=== PATIENT | female | born 1945 | race Caucasian/White ===

== ENCOUNTER 2017-11-07 05:55 | Day surgery (SDC) | payer MEDICARE, OTHER ==
[2017-11-06 10:57] LABS: BASOPHILS # (AUTO) 0.1 X10'3 (0-0.2); BASOPHILS % (AUTO) 1.1 % (0-1); EOSINOPHILS # (AUTO) 0.2 X10'3 (0-0.9); EOSINOPHILS % (AUTO) 2.9 % (0-6); HEMATOCRIT 42.2 % (35.0-45.0); HEMOGLOBIN 14.6 g/dl (12.0-16.0); LYMPHOCYTES # (AUTO) 1.1 X10'3 (1.1-4.8); LYMPHOCYTES % (AUTO) 17.5 % (21-51); MEAN CORPUSCULAR HEMOGLOBIN 36.4 PG (27.0-31.0); MEAN CORPUSCULAR HGB CONC 34.6 % (33.0-36.5); MEAN CORPUSCULAR VOLUME 105.3 FL (78-98); MEAN PLATELET VOLUME 9.4 FL (7.4-10.4); MONOCYTES # (AUTO) 0.5 X10'3 (0-0.9); MONOCYTES % (AUTO) 7.5 % (2-12); NEUTROPHILS # (AUTO) 4.3 X10'3 (1.8-7.7); PLATELET COUNT 154 X10'3 (140-440); RED CELL DISTRIBUTION WIDTH 12.7 % (11.5-14.5); WHITE BLOOD COUNT 6.1 X10'3 (4.5-11.0)
[2017-11-06 11:06] LABS: ALBUMIN 3.8 G/DL (3.4-5.0); ANION GAP 6 (8-16); BLOOD UREA NITROGEN 28 MG/DL (7-18); BUN/CREATININE RATIO 26.2 (6.6-38.0); CALCIUM 8.8 MG/DL (8.5-10.1); CHLORIDE 104 MMOL/L (99-107); CREATININE 1.07 MG/DL (0.40-0.90); GLUCOSE 81 MG/DL (70-104); SODIUM 140 MMOL/L (135-145); TOTAL CARBON DIOXIDE 30.4 MMOL/L (24-32); eGFR 50 ML/MIN
[2017-11-06 11:07] LABS: PARTIAL THROMBOPLASTIN TIME 24 SECONDS (22-32); PROTHROMBIN TIME 10.7 SECONDS (9.0-12.0)
[2017-11-07] VITALS (7 sets, daily range): BP systolic 114–131; BP diastolic 55–71
[~2017-11-07] VITALS: Ht 167.6 cm; Wt 59.4 kg
[~2017-11-07 05:55] MED LIST: CALC-1197 PO; CHOL2000 PO; ESTR0.3T10 PO; FLEC100T2 PO; LOP25T PO; OMEG1CAP PO; PROG100C6 PO; REM15T PO; RIVA20TA PO; TRAV5DRO5 OP; VITA1CAP62 PO; VITA400T8 PO; ZOLP5TAB8 PO
[2017-11-07] MEDS ORDERED: acetylcysteine 200 MG/ml 4ml vial PO PRN (06:15)
[2017-11-07] MEDS ORDERED: diphenhydrAMINE 25mg capsule PO PRN (06:15)
[2017-11-07] MEDS ORDERED: LORazepam 0.5 MG tablet PO PRN (06:15)
[2017-11-07] MEDS ORDERED: normal saline 1000ml 1,000 ML IV SCH (06:15)
[2017-11-07] MEDS ORDERED: ASPI-1264 PO (06:57)
[2017-11-07] MEDS ORDERED: THY60T PO (06:57)
[2017-11-07] MEDS ORDERED: LOSA1TAB39 PO (06:57)
[2017-11-07] MEDS ORDERED: QUET25TA PO (06:57)
[2017-11-07] MEDS ORDERED: midazolam 2 mg/2 ml injection ONE (07:58)
[2017-11-07] MEDS ORDERED: heparin 1,000unit/ml 10ml vial 10 ML ONE (07:58)
[2017-11-07] MEDS ORDERED: fentaNYL/PF 50MCG/1 ML 2ML syringe ONE (07:58)
[2017-11-07] MEDS ORDERED: nitroGLYCERIN-Tridil 50MG/D5W 250 ML IV ONE (07:58)
[2017-11-07] MEDS ORDERED: iohexol 350 MG/ML 50ML vial IV ONE (07:59)
[2017-11-07] MEDS ORDERED: iohexol 350MG/ML 100ml bottle IV ONE (07:59)
[2017-11-07] MEDS ORDERED: LIDOcaine 1% w/EPI 1:100,000 30ml vial (MDV) ONE (08:00)
== END 2017-11-07 15:10 | disposition home or self-care (01) ==
LOC: SSTAY O 05:55
PROVIDERS: ATTEND Internal Medicine Cardiovascular Disease
DX: I25.10 Atherosclerotic heart disease of native coronary artery without angina pectoris (principal); I34.0 Nonrheumatic mitral (valve) insufficiency; I10 Essential (primary) hypertension; I48.0 Paroxysmal atrial fibrillation; M19.90 Unspecified osteoarthritis, unspecified site; E03.9 Hypothyroidism, unspecified; Z79.82 Long term (current) use of aspirin; Z90.89 Acquired absence of other organs; Z88.5 Allergy status to narcotic agent; Z87.891 Personal history of nicotine dependence; Z95.2 Presence of prosthetic heart valve; Z72.89 Other problems related to lifestyle; Z88.8 Allergy status to other drugs, medicaments and biological substances; Z98.890 Other specified postprocedural states; Z79.899 Other long term (current) drug therapy
CPT/HCPCS: 36415; 80048; 85025; 85610; 85730; 93005; 93458; 99152; 99153; A6257; C1760; C1769; J1644; J2250; J3010; J3490; J7030; Q0163; Q9967; A4620

== ENCOUNTER 2022-06-17 08:49 | Outpatient (CLI) | payer MEDICARE ==
[~2022-06-17 08:49] MED LIST changes: +ASPI-1264 PO; -CALC-1197 PO; +CALC-1215 PO; -FLEC100T2 PO; +LOSA1TAB39 PO; +PROG100C11 PO; -PROG100C6 PO; +QUET25TA PO; -REM15T PO; -RIVA20TA PO; +THY60T PO; -ZOLP5TAB8 PO
== END 2022-06-17 23:59 | disposition home or self-care (01) ==
LOC: RAD 08:49
PROVIDERS: ATTEND Internal Medicine Cardiovascular Disease
DX: I34.0 Nonrheumatic mitral (valve) insufficiency (principal); Z95.2 Presence of prosthetic heart valve
CPT/HCPCS: 93306

== ENCOUNTER 2023-11-09 09:39 | Outpatient (CLI) | payer MEDICARE ==
[~2023-11-09] VITALS: Ht 170.2 cm; Wt 59.0 kg
[2023-11-09 11:33] LABS: BILIRUBIN,URINE NEGATIVE (Neg); CLARITY,URINE CLOUDY (Clear); COLOR,URINE YELLOW (Yellow); GLUCOSE, URINE NEGATIVE (Neg); KETONES,URINE NEGATIVE (Neg); LEUKOCYTE ESTERASE ,URINE MODERATE (Neg); NITRITES, URINE POSITIVE (Neg); OCCULT BLOOD,URINE TRACE-INTACT (Neg); PROTEIN,URINE NEGATIVE (Neg); UROBILINOGEN,URINE 0.2 E.U/dL (0.2-1.0)
[2023-11-09 11:34] LABS: UA COLLECTION TYPE CLN CATCH MIDSTREAM
[2023-11-09 11:39] LABS: BASOPHILS # (AUTO) 0.1 X10'3 (0-0.2); BASOPHILS % (AUTO) 0.7 % (0-1); EOSINOPHILS # (AUTO) 0.2 X10'3 (0-0.9); EOSINOPHILS % (AUTO) 2.6 % (0-6); LYMPHOCYTES % (AUTO) 13.1 % (21-51); MEAN CORPUSCULAR HEMOGLOBIN 35.3 PG (27.0-31.0); MEAN CORPUSCULAR HGB CONC 34.3 g/dL (33.0-36.5); MEAN CORPUSCULAR VOLUME 102.9 FL (78-98); MONOCYTES # (AUTO) 0.7 X10'3 (0-0.9); MONOCYTES % (AUTO) 9.4 % (2-12); NEUTROPHILS # (AUTO) 5.7 X10'3 (1.8-7.7); NEUTROPHILS % (AUTO) 74.2 % (42-75); PRE OP HEMATOCRIT 41.4 % (35.0-45.0); PRE OP HEMOGLOBIN 14.2 g/dL (12.0-16.0); PRE OP PLATELET COUNT 174 X10'3 (140-440); PRE OP WHITE BLOOD COUNT 7.6 10'3 (4.8-10.8); RED BLOOD COUNT 4.02 X10'6 (4.20-5.60); RED CELL DISTRIBUTION WIDTH 13.2 % (11.5-14.5)
[2023-11-09 11:44] LABS: PRE OP PROTIME 11.1 SECONDS (9.0-12.0)
[2023-11-09 11:46] LABS: SQUAMOUS EPITHELIAL CELL,UR MANY /LPF (FEW)
[2023-11-09 11:47] LABS: BACTERIA,URINE 4+ /HPF (Neg); RBC,URINE 0-2 /HPF (0-2)
[2023-11-09 12:00] LABS: ALBUMIN 3.5 G/DL (3.4-5.0); ALBUMIN/GLOBULIN RATIO 1.1 (1.1-1.5); ALKALINE PHOSPHATASE 65 IU/L (46-116); BLOOD UREA NITROGEN 21 MG/DL (7-18); BUN/CREATININE RATIO 21.6 (10.0-20.0); CALCIUM 9.1 MG/DL (8.5-10.1); CHLORIDE 105 MMOL/L (99-107); CREATININE 0.97 MG/DL (0.40-0.90); PRE OP ALT 31 U/L (30-65); PRE OP ANION GAP 6 (8-16); PRE OP AST 32 U/L (10-37); PRE OP GLUCOSE 88 MG/DL (70-104); PRE OP POTASSIUM 4.3 MMOL/L (3.4-5.1); PRE OP SODIUM 139 MMOL/L (135-145); THYROID STIMULATING HORMONE 2.22 ulU/ml (0.34-4.50); TOTAL CARBON DIOXIDE 28.2 MMOL/L (24-32); TOTAL PROTEIN 6.6 G/DL (6.4-8.2); eGFR 55 ML/MIN
[2023-11-09] MEDS ORDERED: CELE-127 PO (13:34)
[2023-11-09] MEDS ORDERED: DULO60CA65 PO (13:34)
[2023-11-09] MEDS ORDERED: FLAX OIL (13:34)
[2023-11-09] MEDS ORDERED: LEVO50TA8 PO (13:34)
[2023-11-09] MEDS ORDERED: VIT D3 (13:34)
[2023-11-09] MEDS ORDERED: LOPERAMIDE (13:35)
[2023-11-14] MEDS ORDERED: cefazolin 2gm/D5W 100mL 100 ML IV ONE (05:30)
[2023-11-14] MEDS ORDERED: tranexamic acid inj. 1,000 MG in normal saline IV soln 100ML IV ONE (05:30)
[2023-11-14] MEDS ORDERED: ringers solution, lacted 1,000 ML IV SCH (05:30)
[2023-11-14] MEDS ORDERED: famotidine 20mg tablet PO ONE (05:30)
[2023-11-14] MEDS ORDERED: DOCUMENT DATE & TIME OF BETA-BLOCKER PO ONE (05:30)
== END 2023-11-09 23:59 | disposition home or self-care (01) ==
LOC: LAB 09:39 → EDSTATUS 11-14 10:00
PROVIDERS: ATTEND Specialist
DX: Z01.818 Encounter for other preprocedural examination (principal); M19.011 Primary osteoarthritis, right shoulder; I10 Essential (primary) hypertension; E03.9 Hypothyroidism, unspecified; F41.9 Anxiety disorder, unspecified; F32.A Depression, unspecified; M19.90 Unspecified osteoarthritis, unspecified site; Z85.038 Personal history of other malignant neoplasm of large intestine; Z86.73 Personal history of transient ischemic attack (TIA), and cerebral infarction without residual deficits; Z87.891 Personal history of nicotine dependence; Z79.82 Long term (current) use of aspirin; Z79.890 Hormone replacement therapy; Z79.899 Other long term (current) drug therapy; Z90.49 Acquired absence of other specified parts of digestive tract; Z90.89 Acquired absence of other organs; Z96.641 Presence of right artificial hip joint; Z96.659 Presence of unspecified artificial knee joint; Z98.890 Other specified postprocedural states; Z88.5 Allergy status to narcotic agent; Z88.8 Allergy status to other drugs, medicaments and biological substances
CPT/HCPCS: 36415; 71046; 80053; 81001; 84443; 85025; 85610; 85730; 86885; 86900; 86901; 87077; 87081; 87088; 87186; J0690; J3490; J7120

== ENCOUNTER 2024-01-23 06:14 | Inpatient (IN) | payer MEDICARE ==
[2024-01-16 14:50] LABS: BILIRUBIN,URINE NEGATIVE (Neg); CLARITY,URINE CLEAR (Clear); COLOR,URINE YELLOW (Yellow); GLUCOSE, URINE NEGATIVE (Neg); KETONES,URINE NEGATIVE (Neg); LEUKOCYTE ESTERASE ,URINE TRACE (Neg); NITRITES, URINE NEGATIVE (Neg); OCCULT BLOOD,URINE NEGATIVE (Neg); PROTEIN,URINE NEGATIVE (Neg); UROBILINOGEN,URINE 0.2 E.U/dL (0.2-1.0)
[2024-01-16 14:50] LABS: BASOPHILS # (AUTO) 0.1 X10'3 (0-0.2); EOSINOPHILS # (AUTO) 0.2 X10'3 (0-0.9); MEAN CORPUSCULAR HGB CONC 33.8 g/dL (33.0-36.5); MONOCYTES # (AUTO) 0.7 X10'3 (0-0.9); NEUTROPHILS # (AUTO) 5.9 X10'3 (1.8-7.7); PRE OP HEMOGLOBIN 14.8 g/dL (12.0-16.0)
[2024-01-16 14:51] LABS: UA COLLECTION TYPE CLN CATCH MIDSTREAM
[2024-01-16 14:51] LABS: BASOPHILS % (AUTO) 0.9 % (0-1); EOSINOPHILS % (AUTO) 2.5 % (0-6); LYMPHOCYTES % (AUTO) 13.2 % (21-51); MEAN CORPUSCULAR HEMOGLOBIN 35.1 PG (27.0-31.0); MEAN CORPUSCULAR VOLUME 103.8 FL (78-98); MEAN PLATELET VOLUME 9.6 FL (7.4-10.4); MONOCYTES % (AUTO) 8.7 % (2-12); NEUTROPHILS % (AUTO) 74.7 % (42-75); PRE OP HEMATOCRIT 43.8 % (35.0-45.0); PRE OP PLATELET COUNT 184 X10'3 (140-440); PRE OP WHITE BLOOD COUNT 7.9 10'3 (4.8-10.8); RED BLOOD COUNT 4.22 X10'6 (4.20-5.60); RED CELL DISTRIBUTION WIDTH 13.7 % (11.5-14.5)
[2024-01-16 14:56] LABS: BACTERIA,URINE 1+ /HPF (Neg); RBC,URINE 0-2 /HPF (0-2); SQUAMOUS EPITHELIAL CELL,UR MODERATE /LPF (FEW)
[2024-01-16 14:57] LABS: MUCUS STRANDS NONE SEEN /LPF (Neg)
[2024-01-16 14:59] LABS: PRE OP INR 1.1 INR; PRE OP PROTIME 11.3 SECONDS (9.0-12.0)
[2024-01-16 15:00] LABS: ALBUMIN 3.6 G/DL (3.4-5.0); ALBUMIN/GLOBULIN RATIO 1.3 (1.1-1.5); ALKALINE PHOSPHATASE 65 IU/L (46-116); BLOOD UREA NITROGEN 20 MG/DL (7-18); CALCIUM 8.7 MG/DL (8.5-10.1); CHLORIDE 104 MMOL/L (99-107); CREATININE 1.33 MG/DL (0.40-0.90); PRE OP ALT 24 U/L (30-65); PRE OP ANION GAP 7 (8-16); PRE OP AST 29 U/L (10-37); PRE OP BILIRUB, TOTAL 0.6 MG/DL (0.0-1.0); PRE OP GLUCOSE 82 MG/DL (70-104); PRE OP POTASSIUM 4.5 MMOL/L (3.4-5.1); PRE OP SODIUM 139 MMOL/L (135-145); TOTAL CARBON DIOXIDE 27.7 MMOL/L (24-32); TOTAL PROTEIN 6.4 G/DL (6.4-8.2); eGFR 38 ML/MIN
[~2024-01-23] VITALS: Ht 170.2 cm; Wt 59.6 kg
[2024-01-23] VITALS (23 sets, daily range): BP systolic 118–163; BP diastolic 50–89; PULSE 56–70; RESP 12–22; TEMP 96.3–97.7; O2SAT 92–100
[2024-01-23] MEDS: DOCUMENT DATE & TIME OF BETA-BLOCKER PO ONE (05:30)
[2024-01-23] MEDS: cefazolin 2gm/D5W 100mL 100 ML IV ONE (05:30)
[2024-01-23] MEDS: tranexamic acid inj. 1,000 MG in normal saline IV soln 100ML IV ONE (05:30)
[~2024-01-23 06:14] MED LIST changes: -CALC-1215 PO; +CALCIUM PO; +CELE-127 PO; -CHOL2000 PO; +CHOL500044 PO; +DULO60CA65 PO; -ESTR0.3T10 PO; +FLAX OIL PO; +LEVO50TA8 PO; +LOPERAMIDE PO; -OMEG1CAP PO; +PREG25CA19 PO; -THY60T PO; -TRAV5DRO5 OP; -VITA1CAP62 PO; -VITA400T8 PO; +[UNRECOGNIZED DRUG - OTHER]
[2024-01-23] MEDS ORDERED: HYDROcodone/acetaminophen 5mg/325mg tablet PO PRN (07:05)
[2024-01-23] MEDS ORDERED: naloxone 0.4 mg/ml inj IV PRN (07:05)
[2024-01-23] MEDS ORDERED: bisacodyl 10mg suppository rectal RC PRN (07:05)
[2024-01-23] MEDS ORDERED: acetaminophen 325mg tablet PO PRN (07:05)
[2024-01-23] MEDS ORDERED: diphenhydrAMINE 25mg capsule PO PRN (07:05)
[2024-01-23] MEDS ORDERED: ondansetron/PF 4mg/2ml inj IV PRN ×2 (07:05→08:45)
[2024-01-23] MEDS ORDERED: magnesium hydroxide 30ml (MOM) UD suspension PO PRN (07:05)
[2024-01-23] MEDS: ringers solution, lacted 1,000 ML IV SCH ×2 (07:26→11:38)
[2024-01-23] MEDS: famotidine 20mg tablet PO ONE (07:27)
[2024-01-23] MEDS ORDERED: sevoflurane 250ml liquid IH ONE (07:35)
[2024-01-23] MEDS ORDERED: fentaNYL/PF 50MCG/1 ML 2ML syringe ONE (07:39)
[2024-01-23] MEDS ORDERED: midazolam 1 mg/ML 2ml injection ONE (07:40)
[2024-01-23] MEDS ORDERED: LIDOcaine 2% (20mg/ml) 5ml vial ONE (08:06)
[2024-01-23] MEDS ORDERED: dexamethasone sod phosphate 4mg/ml inj. ONE (08:06)
[2024-01-23] MEDS ORDERED: propofol inj 20 ML IV ONE (08:06)
[2024-01-23] MEDS ORDERED: ROPIVAcaine 0.5% (5mg/ml) 30ml vial ONE (08:06)
[2024-01-23] MEDS ORDERED: enalaprilat dihydrate 2.5mg/2ml vial IV PRN (08:45)
[2024-01-23] MEDS ORDERED: morphine 4 MG/ML inj SYRINge IV PRN (08:45)
[2024-01-23] MEDS ORDERED: labetalol 20mg/4ml (5mg/ml) syringe IV PRN (08:45)
[2024-01-23] MEDS ORDERED: meperidine/PF 25mg/ml syringe IV PRN ×3 (08:45)
[2024-01-23] MEDS ORDERED: proCHLORperazine 10 MG/2 ml inj IV PRN (08:45)
[2024-01-23] MEDS ORDERED: morphine 2 MG/ML inj. syringe IV PRN (08:45)
[2024-01-23] MEDS ORDERED: ondansetron/PF 4mg/2ml inj ONE (09:36)
[2024-01-23] MEDS ORDERED: glycopyrrolate 0.2mg/ml inj ONE (09:37)
[2024-01-23] MEDS ORDERED: neostigmine methylsulfate 1 MG/ML 10ml vial ONE (09:37)
[2024-01-23] MEDS ORDERED: QUEtiapine 25mg tablet PO PRN (13:30)
[2024-01-23] MEDS ORDERED: loperamide 2mg capsule PO PRN (13:30)
[2024-01-23] MEDS: ceFAZolin/D5W- 1GM premix 50 ML IV SCH (19:13)
[2024-01-23] MEDS ORDERED: FLAX OIL PO SCH (20:00)
[2024-01-23] MEDS: progesterone, micronized 100mg capsule PO SCH (21:41)
[2024-01-23] MEDS: pregabalin 25mg capsule PO SCH (21:41)
[2024-01-23] MEDS: metoprolol tartrate 25mg tablet PO SCH (21:42)
[2024-01-23] MEDS: cholecalciferol (vitamin D3) 1,000 unit (25mcg) tablet PO SCH (21:43)
[2024-01-23] MEDS: celeCOXIB 100mg capsule PO SCH (21:43)
[2024-01-23] MEDS: calcium carbonate 500mg tablet PO SCH (21:43)
[2024-01-23] MEDS: potassium cl 20mEq in 1/2 NS 1,000 ML IV SCH (22:03)
[2024-01-24 02:00] VITALS: BP 113/56; PULSE 70; RESP 13; TEMP 97.9; O2SAT 96
[2024-01-24] MEDS: HYDROcodone/acetaminophen 5mg/325mg tablet PO PRN (05:54)
[2024-01-24 05:56] LABS: BASOPHILS % (AUTO) 0.2 % (0-1); EOSINOPHILS % (AUTO) 0 % (0-6); HEMATOCRIT 37.8 % (35.0-45.0); LYMPHOCYTES # (AUTO) 0.9 X10'3 (1.1-4.8); LYMPHOCYTES % (AUTO) 6.5 % (21-51); MEAN CORPUSCULAR HEMOGLOBIN 35.7 PG (27.0-31.0); MEAN CORPUSCULAR HGB CONC 34.3 g/dL (33.0-36.5); MEAN CORPUSCULAR VOLUME 104.1 FL (78-98); MEAN PLATELET VOLUME 9.8 FL (7.4-10.4); MONOCYTES # (AUTO) 1.3 X10'3 (0-0.9); MONOCYTES % (AUTO) 9.4 % (2-12); NEUTROPHILS # (AUTO) 11.5 X10'3 (1.8-7.7); NEUTROPHILS % (AUTO) 83.9 % (42-75); PLATELET COUNT 142 X10'3 (140-440); RED BLOOD COUNT 3.63 X10'6 (4.20-5.60); RED CELL DISTRIBUTION WIDTH 13.5 % (11.5-14.5); WHITE BLOOD COUNT 13.7 X10'3 (4.5-11.0)
[2024-01-24 06:00] VITALS: BP 143/66; PULSE 65; RESP 14; TEMP 98.3; O2SAT 95
[2024-01-24 06:38] LABS: ALANINE AMINOTRANSFERASE 23 U/L (12-78); ALBUMIN 2.9 G/DL (3.4-5.0); ALBUMIN/GLOBULIN RATIO 1.2 (1.1-1.5); ALKALINE PHOSPHATASE 53 IU/L (46-116); ANION GAP 7 (8-16); ASPARTATE AMINO TRANSFERASE 34 U/L (10-37); BILIRUBIN,TOTAL 0.6 MG/DL (0.1-1.0); BLOOD UREA NITROGEN 19 MG/DL (7-18); BUN/CREATININE RATIO 16.8 (10.0-20.0); CALCIUM 8.6 MG/DL (8.5-10.1); CHLORIDE 107 MMOL/L (99-107); CREATININE 1.13 MG/DL (0.40-0.90); GLUCOSE 113 MG/DL (70-104); POTASSIUM 4.5 MMOL/L (3.5-5.1); SODIUM 140 MMOL/L (135-145); TOTAL CARBON DIOXIDE 25.9 MMOL/L (24-32); TOTAL PROTEIN 5.4 G/DL (6.4-8.2); eCRCL 38 ML/MIN; eGFR 46 ML/MIN
[2024-01-24 08:00] VITALS: RESP 14; O2SAT 95
[2024-01-24] MEDS ORDERED: aspirin 325mg tablet PO SCH (08:00)
[2024-01-24] MEDS: duloxetine 30mg CAPSULE.DR PO SCH (09:22)
[2024-01-24] MEDS: levoTHYROXINE 25mcg tablet PO SCH (09:23)
[2024-01-24] MEDS: aspirin 325mg tablet PO SCH (09:24)
[2024-01-24] MEDS: HYDROchlorothiazide 25mg tablet PO SCH (09:24)
[2024-01-24] MEDS: losartan 50mg tablet PO SCH (09:27)
[2024-01-24 10:00] VITALS: BP 128/55; PULSE 53; RESP 14; TEMP 98.8; O2SAT 98
[2024-01-24] MEDS ORDERED: QUEtiapine 25mg tablet PO PRN (10:50)
[2024-01-24] MEDS ORDERED: levoTHYROXINE 75mcg tablet PO SCH (10:50)
[2024-01-24 12:17] VITALS: RESP 16
== END 2024-01-24 12:47 | disposition home or self-care (01) | DRG 483 ==
LOC: PAS 06:14 → ORTHO 4S 07:14 → PAS 01-24 13:21
PROVIDERS: ADMIT Specialist; ATTEND Specialist
PROC: 0LS30ZZ Reposition Right Upper Arm Tendon, Open Approach (ICD-10-PCS; 2024-01-23)
PROC: 3E0T3BZ Introduction of Anesthetic Agent into Peripheral Nerves and Plexi, Percutaneous Approach (ICD-10-PCS; 2024-01-23)
PROC: 3E0T33Z Introduction of Anti-inflammatory into Peripheral Nerves and Plexi, Percutaneous Approach (ICD-10-PCS; 2024-01-23)
PROC: 0RRJ00Z Replacement of Right Shoulder Joint with Reverse Ball and Socket Synthetic Substitute, Open Approach (ICD-10-PCS; principal; 2024-01-23 07:35)
DX: M19.011 Primary osteoarthritis, right shoulder (principal); E03.9 Hypothyroidism, unspecified; I48.91 Unspecified atrial fibrillation; M75.111 Incomplete rotator cuff tear or rupture of right shoulder, not specified as traumatic; Z88.5 Allergy status to narcotic agent; Z88.8 Allergy status to other drugs, medicaments and biological substances; Z79.899 Other long term (current) drug therapy; M65.811 Other synovitis and tenosynovitis, right shoulder
CPT/HCPCS: 36415; 71046; 73030; 76000; 80053; 81001; 82948; 85025; 85610; 85730; 86885; 86900; 86901; 87081; 87088; 93005; 97110; 97161; 97530; A4618; A6258; A6449; A6455; A7000; C1776; G0378; J0690; J1100; J2250; J2405; J2704; J2710; J2795; J3010; J3480; J3490; J7120

== ENCOUNTER 2024-07-23 07:10 | Day surgery (SDC) | payer MEDICARE ==
[2024-07-22 14:26] LABS: BASOPHILS % (AUTO) 0.5 % (0-1); EOSINOPHILS # (AUTO) 0.1 X10'3 (0-0.9); EOSINOPHILS % (AUTO) 1.7 % (0-6); HEMATOCRIT 43.9 % (35.0-45.0); HEMOGLOBIN 14.4 g/dl (12.0-16.0); LYMPHOCYTES # (AUTO) 0.9 X10'3 (1.1-4.8); LYMPHOCYTES % (AUTO) 10.7 % (21-51); MEAN CORPUSCULAR HEMOGLOBIN 33.8 PG (27.0-31.0); MEAN CORPUSCULAR HGB CONC 32.8 g/dL (33.0-36.5); MEAN CORPUSCULAR VOLUME 103.2 FL (78-98); MEAN PLATELET VOLUME 8.6 FL (7.4-10.4); MONOCYTES # (AUTO) 0.7 X10'3 (0-0.9); MONOCYTES % (AUTO) 8.5 % (2-12); NEUTROPHILS # (AUTO) 6.8 X10'3 (1.8-7.7); NEUTROPHILS % (AUTO) 78.6 % (42-75); PLATELET COUNT 218 X10'3 (140-440); RED BLOOD COUNT 4.25 X10'6 (4.20-5.60); RED CELL DISTRIBUTION WIDTH 14.9 % (11.5-14.5); WHITE BLOOD COUNT 8.6 X10'3 (4.5-11.0)
[2024-07-22 14:40] LABS: INR 1.1 INR; PROTHROMBIN TIME 11.5 SECONDS (9.0-12.0)
[2024-07-22 14:41] LABS: ALBUMIN 3.3 G/DL (3.4-5.0); ANION GAP 4 (8-16); BLOOD UREA NITROGEN 22 MG/DL (7-18); CALCIUM 8.6 MG/DL (8.5-10.1); CHLORIDE 106 MMOL/L (99-107); CREATININE 1.22 MG/DL (0.40-0.90); GLUCOSE 87 MG/DL (70-104); POTASSIUM 4.8 MMOL/L (3.5-5.1); SODIUM 141 MMOL/L (135-145); TOTAL CARBON DIOXIDE 31.2 MMOL/L (24-32); eGFR 42 ML/MIN
[2024-07-23] VITALS (8 sets, daily range): BP systolic 96–124; BP diastolic 55–77; PULSE 46–93; RESP 14–16; TEMP 97.8; O2SAT 96–100
[~2024-07-23] VITALS: Ht 170.2 cm; Wt 64.1 kg
[~2024-07-23 07:10] MED LIST changes: -PROG100C11 PO; -[UNRECOGNIZED DRUG - OTHER]
[2024-07-23] MEDS ORDERED: atropine 0.1mg/ml 10ml syringe IV ONE (07:35)
[2024-07-23] MEDS ORDERED: LORazepam 0.5 MG tablet PO ONE (07:35)
[2024-07-23] MEDS ORDERED: amiodarone 150mg/dext, iso-os 100 ML IV ONE (07:35)
[2024-07-23] MEDS ORDERED: diphenhydrAMINE 25mg capsule PO ONE (07:35)
[2024-07-23] MEDS ORDERED: SPIR25TA5 PO (07:45)
[2024-07-23] MEDS ORDERED: PROG200C11 PO (07:45)
[2024-07-23] MEDS ORDERED: AMI200T PO (07:45)
[2024-07-23] MEDS ORDERED: LOSA100T58 PO (07:45)
[2024-07-23] MEDS ORDERED: METO50TA16 PO (07:45)
[2024-07-23] MEDS ORDERED: ROSU20TA98 PO (07:45)
[2024-07-23] MEDS ORDERED: APIX5TAB3 PO (07:45)
[2024-07-23] MEDS ORDERED: DULO60CA63 PO (07:55)
[2024-07-23] MEDS ORDERED: ESTR42.510 (07:55)
[2024-07-23] MEDS ORDERED: DILT120C52 PO (07:55)
[2024-07-23] MEDS ORDERED: AMIO200T72 PO (07:58)
[2024-07-23] MEDS: normal saline 1000ml 1,000 ML IV SCH (08:56)
[2024-07-23] MEDS: morphine 10mg/ml inj. IV ONE (08:57)
[2024-07-23] MEDS: MIDAZolam 1mg/ml 10ml vial IV ONE (08:57)
== END 2024-07-23 10:10 | disposition home or self-care (01) ==
LOC: SSTAY O 07:10
PROVIDERS: ATTEND Internal Medicine Cardiovascular Disease
DX: I48.0 Paroxysmal atrial fibrillation (principal); I48.92 Unspecified atrial flutter; I11.9 Hypertensive heart disease without heart failure; E78.5 Hyperlipidemia, unspecified; Z79.899 Other long term (current) drug therapy; Z79.01 Long term (current) use of anticoagulants; Z98.890 Other specified postprocedural states; I25.10 Atherosclerotic heart disease of native coronary artery without angina pectoris; I50.22 Chronic systolic (congestive) heart failure; I34.0 Nonrheumatic mitral (valve) insufficiency; I36.1 Nonrheumatic tricuspid (valve) insufficiency; I11.0 Hypertensive heart disease with heart failure; Z88.6 Allergy status to analgesic agent; Z88.8 Allergy status to other drugs, medicaments and biological substances; Z85.038 Personal history of other malignant neoplasm of large intestine; Z96.652 Presence of left artificial knee joint
CPT/HCPCS: 36415; 80048; 85025; 85610; 92960; 93005; J2250; J2270; J7030; J2274